=== PATIENT | male | born 1940 | race Caucasian/White ===

== ENCOUNTER 2025-01-02 17:56 | Observation (INO) | payer MEDICARE, OTHER, SELFPAY ==
[2025-01-02] VITALS (7 sets, daily range): BP systolic 126–170; BP diastolic 64–80; BMI 25.9
[2025-01-02 15:45] LABS: Glucose - Point of Care 112 mg/dl (70-99)
--- NOTE | 2025-01-02 15:45 | ED.CVA ---
History of Present Illness
General
Chief Complaint: CVA/TIA Symptoms
Source: patient and ambulance crew
Exam Limitations: none
Time Seen by Provider: 01/02/25 15:43
Nursing documentation reviewed up to this point in time: agreed with
Onset of Stroke Symptoms
Onset of symptoms known: Yes
Date of onset of symptoms: 01/02/25
Time of onset of symptoms: 10:00
Time pt last seen normal is known: Yes
Date last time pt seen normal: 01/02/25
Time last time pt seen normal: 10:00
History of Present Illness
History of Present Illness:
84-year-old male presents emergency department due to left facial droop, left leg weakness and difficulty speaking. His last seen normal at 10 AM.
Past History
Past History
ED Past Medical History: HTN
ED Past Surgical History: Orthopedic (Left ankle) and Other (Neck surgery as an )
Social History
Tobacco: Non-smoker
Alcohol: None
Living: with roommate
Review of Systems
Review of Systems
Allergies reviewed?: Yes
All Other Systems: Not applicable
Constitutional: Reports no symptoms
EENT: Reports no symptoms
Respiratory: Reports no symptoms
Cardiac: Reports no symptoms
ABD/GI: Reports no symptoms
: Reports no symptoms
Musculoskeletal: Reports no symptoms
Skin: Reports no symptoms
Neurological: Reports weakness
Endocrine: Reports no symptoms
Hematologic/Lymphatic: Reports no symptoms
Psychiatric: Reports no symptoms
Phy Exam
Physical Exam
Physical Exam:
Physical Exam
General: no apparent distress, not acutely ill
Neck: supple. no meningeal signs. normal posterior pharynx
Heart: s1/s2 regular rate and rhythm, no murmur. equal radial
pulses.
HEENT: Pupils equal round reactive to light, EOMI
Lungs: no acute respiratory distress. clear bilaterally
Abdomen: normal bowel sounds. not tender. no CVAT
Neuro: alert and oriented. Left facial droop, left leg weakness, drift, dysarthria
Skin: no rash
Psychiatric: well kept. interactive and cooperative
Extremities: no edema. no calf tenderness. negative homans. good distal pulses
Alteplase Contraindication
Reasons for NON-Treatment with Thrombolytics: Time
Scores
NIH Stroke Score
Level of Consciousness: 0 - Alert
LOC Questions: 0-Answers both correctly
LOC Commands: 0-Performs both correctly
Best Horizontal Gaze: 0-Normal
Visual Awad: 0=Normal, no visual loss
Facial Palsy: 1=Minor paralysis
Motor - Right Arm: 0=No drift 10 seconds
Motor - Left Arm: 0=No drift 10 seconds
Motor - Right Le-No drift 5 seconds
Motor - Left Le-Drift < 5 seconds
Limb Ataxia: 0-Absent
Sensation: 0-Normal
Best Language: 0-No aphasia
Dysarthria: 1-Mild slurring
Extinction and Inattention: 0-No abnormality
Total Score:: 3
Thrombolytic Contraindication
Inclusion and Exclusion criteria reviewed: Yes
Reasons for NON-Tx with Thrombolytics ABSOLUTE Exclusions: Greater than 4.5 hrs from onset of sxs
Course
Orders/Labs/Results
Orders:
Orders
01/02/25 Dinner
Cholesterol Lowering
At Your Request: Full Participation
Reason for opting out of Air Brake Adjuster order writing: Provider Decision
01/02/25 15:43
CT HEAD STROKE ALERT W/o Cont Urgent
Comment:
Reason For Exam: left facial droop, left leg drift, dysarthria
01/02/25 15:44
Cardiac Monitoring- Treatment ONCE
IV Insert/Care/Rem.- Treatment PRN
Pulse Ox/cont/shift [RESP] Stat
Quantity: 1
01/02/25 15:45
Electrocardiogram (*1) Stat
Reason for Study: Other
Other Reason for Exam: neuro symptoms
EKG- Treatment ONCE
01/02/25 15:46
Cardiovascular Evaluation Urgent
Comment: ADD ON
Complete Blood Count/With Diff Urgent
Comprehensive Metabolic Panel Urgent
Glycohemoglobin (HgbA1c) Urgent
PTT Urgent
Prothrombin Time Urgent
01/02/25 16:10
Vital Signs- Treatment ONCE
Frequency: q30m
01/02/25 16:12
CT Head & Neck Angio W/wo IV Urgent
Comment:
Reason For Exam: stenosis
01/02/25 16:52
Urinalysis Reflex To Culture Urgent
Date Specimen was Collected: 01/02/25
Time Specimen was Collected: 16:45
Urine Microscopic Reflex Cult Urgent
01/02/25 17:45
Admit/Transfer Patient As Directed
Co-Sign Provider:
Level of Care: Observation services
Assign to:: Telemetry
Physician / Group: Jesus/hospitalist
Diagnosis: slurred speech, weakness
Reason for Telemetry: CVA/TIA
Date to Stop Telemetry: 01/05/25
Time to Stop Telemetry: 11:00
PRN Pain Medication Management As Directed
May give lesser potent ordered pain med per pt: Yes
preference::
Protocol:: Medication orders for pain may be administered in a
manner that supports deferring to patient preference
when the pt is:
- Requesting an ordered lesser potent pain medication.
Least to most potent pain medications are defined
as: acetaminophen < NSAID < tramadol < opioids
(morphine, oxycodone, hydromorphone).
- Requesting a lesser dose of the same medication IF
ORDERED.
- Requesting a less intrusive route of administration
if both routes are prescribed by the provider (PO <
IV).
01/02/25 17:46
Code Status As Directed
Resuscitation Status: Full Code
01/02/25 17:50
Add On- LAB Routine
Tests Added?: HgA1C, lipid panel
01/02/25 18:00
Aspirin Low Dose EC [Aspir Low (Enteric Coated)] 81 mg PO DAILY
Clopidogrel Bisulfate [Plavix] 75 mg PO DAILY
01/02/25 20:02
Acetaminophen [Tylenol/Feverall] 650 mg RECTAL Q4HPRN PRN
Acetaminophen [Tylenol] 650 mg PO Q4HPRN PRN
01/02/25 20:02
Echo 2D MMode Color/Doppler Routine
Reason for Study: stroke/TIA
Case Management Consult ONCE
Case Management Consult: Discharge Planning
Comment: stroke/tia
DIETARY IP CONSULT Routine
Reason for Consult: stroke/TIA
NEUROLOGY CONSULT Urgent
Consulting Provider: Charmaine Snyder
Was physician already notified: Yes
Telecom Manager Urgent
MR Brain Without Contrast Routine
Comment:
Reason For Exam: stroke/TIA
Recent pill cam endoscopy?: No
Activity As Directed
Activity Level: As Tolerated
NIH Stroke Scale As Directed
Directions: Per protocol
Comment: every shift and with any change in condition or mental status
Neurological Checks As Directed
Frequency: q4h
Additional Instructions:: q4h x 24h upon admission to the floor, then qshift & with any change in condition
and mental status
Patient Education As Directed
Type: Stroke education packet
Comment: provide to patient and family
Pneumatic Compression Sleeves As Directed
Type: Knee high
Swallow Screening CVA/TIA ONLY As Directed
Comment: NPO until swallowing screening completed
If patient FAILS swallow screening:: NPO, Speech Therapy consult, Aspiration Precautions
If patient PASSES swallow screening, diet:: Cholesterol Lowering
Above diet order entered?: Yes- passed screening
Vital Signs As Directed
Frequency: Per unit guidelines
Ot Eval And Treat Routine
Pt Eval And Treat Routine
Activity Level: As Tolerated
Speech Therapy Eval & Treat Routine
DX Deep Vein Thrombosis Video Routine
01/03/25 06:00
Cardiovascular Evaluation IN AM
01/05/25 11:00
DC Protocol for Telemetry ONCE
Abnormal Lab Results
01/02/25 01/02/25 01/02/25
15:43 15:46 16:52
RBC 3.91 L 10^6/uL
(4.70-6.10)
Hct 38.6 L %
(39.0-52.0)
MCV 98.7 H fL
(80.0-94.0)
MCH 34.8 H pg
(27.0-31.0)
Plt Count 128 L 10^3/uL
(130-400)
MPV 11.1 H fL
(7.4-10.4)
Absolute Lymphs (auto) 0.3 L 10^3/uL
(1.2-3.4)
Neutrophils % 78.9 H %
(42.2-75.2)
Lymphocytes % 6.1 L %
(20.5-51.1)
Monocytes % 10.3 H %
(1.7-9.3)
PT 14.9 H Sec
(11.4-14.6)
Glucose 111 H mg/dl
(70-99)
Total Bilirubin 1.4 H mg/dl
(0.2-1.3)
Urine Ketones 1+ A
(Negative)
Ur Occult Blood Reflex 2+ A
(Negative)
Urine RBC 3-6 A /HPF
(0-2)
Urine Bacteria (Reflex) Few A
(Negative)
Urine Albumin (Reflex) 1+ A
(Neg - Trace)
POC Glucose 112 H mg/dl
(70-99)
01/02/25 15:46
01/02/25 15:46
Vital Signs
Initial and Last Documented VS:
Initial Vital Signs
Pulse Resp BP Pulse Ox
93 18 170/70 94
01/02/25 15:39 01/02/25 15:39 01/02/25 15:39 01/02/25 15:39
Last Documented Vital Signs
Temp Pulse Resp BP Pulse Ox
98.5 F 85 20 156/67 97
01/02/25 20:21 01/02/25 20:21 01/02/25 20:21 01/02/25 20:21 01/02/25 20:21
MDM/Problems Addressed
Differential Diagnosis Includes:
Intracranial hemorrhage, CVA
MDM/Problems Addressed:
84-year-old male with acute CVA. Unclear onset. Stroke alert called. TNK not indicated. This is due to timing.
Chronic conditions affecting care: HTN
*Radiology
Radiology exam reviewed: radiology read reviewed (CT head no acute findings, CT angiography no acute findings)
*Pulse Oximetry
Patient hypoxic: no
*EKG
Interpreted by ED Provider?: Yes
EKG Intrepretation Date: 01/02/25
EKG Intrepretation Time: 16:21
Interpretation: abnormal
Comparison EKG: changes noted
Heart Rate: 93
Rate: normal
Rhythm: sinus and PVC's
Foley: normal axis
Interval: normal interval
QRS Pattern: normal QRS
Ischemia: no ischemia
*Box Person Interpretation
Rate: normal
Interpretation: normal
Heart Rate: 92
Rhythm: sinus
*Critical Care Note
Total Time (30-74mins, 75-104mins- exclusive of procedures): Not Applicable
Data Reviewed
Prescriptions/Medications Considered But Not Given:
TNK not indicated
Patient Management
Social determinants of health affecting care: Living situation and Strong social support
Discussion with other providers: Hospitalist and Head Filter Press Tender (neuro recommends DAPT)
Escalation/DeEscalation of care consider admission/obs:
admit not indicated
ED Attending Note
-
Portions of this chart may have been created with voice recognition software.� Occasional wrong word or��sound alike� substitutions may have occurred due to the inherent limitations of voice recognition software.
Discharge Plan
Departure
Patient Disposition: Admit
Date of Disposition: 01/02/25
Time of Disposition: 17:24
Admit to: Telemetry
Presentation/result/management discussed w/ accepting MD/DO: Hospitalist
Patient with high blood pressure during this ER visit?: Yes
Condition: Good
Discharge Problem:
Acute cerebrovascular accident (CVA)
Interventions
Interventions:
*Risk Screen - Suicide Last Done: 01/02/25 22:24
*General Assessment Last Done: 01/02/25 16:00
*Neglect/Abuse Screening Last Done: 01/02/25 19:30
*ED- Fall Risk Assessment Last Done: 01/02/25 16:00
*Nursing Disposition Last Done: 01/02/25 19:30
ED- Pulmonary Assessment Last Done: 01/02/25 16:00
ED- Neurological Assessment Last Done: 01/02/25 16:00
ED- Cardiac Assessment Last Done: 01/02/25 16:00
ED Swallowing Screen Last Done: 01/02/25 16:00
Discharge Date and Time
Discharge Date/Time: 01/02/25 19:30
--- NOTE | 2025-01-02 15:47 | CON.NEURO ---
Consultation
Order
Date of Consultation: 01/02/25
Requesting Provider: Cristino Arshad DO
Reason for Consult: Stroke alert
Prehospital notification: 15:29
Neurology Consultation Note.
HPI: This is an 84-year-old man who presented to the [facility] on 01/02/[facility] with speech and motor deficits. According to patient's girlfriend
Around 1:30 PM, the patient complained of feeling cold, which was unusual for him, and had a blanket over his legs while watching television. His noticed his speech became slurred around 2:30 pm, and he reported feeling dizzy and 'not right.'
When he attempted to stand up, he had was noted to be imbalances and had trouble climbing stairs. Patient girlfriend is not '100% sure ' if the patient was normal at 1:30 pm today.
The patient's reportedly typically practices his double boyle 5 days a week, but did not do so today, which was out of character. She mentions he hadn't eaten anything today in preparation for an [employer] meal. At baseline patient is reportedly
independent in ADLs.
ER VS: 170/70, 93, 18,
EKG:NSR, QTc Int : 420 ms
PDMP:none
Labs:gluc 112, normal WBCs, platelets�128 bilirubin�[address] head wo contrast-4 mm central damian chronic lacunar infarct.
PMH: HTN, PSA elevation, seasonal allergies
PSH: Open reduction internal fixation of a left ankle trimalleolar fracture, ?Neck surgery
SH: independent in AIDLs, smoker smoker, no E
FH:mother-depression, father- from pancreatitis
All:NKDA
ROS: Negative for speech, motor deficit, positive for encephalopathy
NIH Stroke Scale
1A Level of Consciousness: 0/3
1B LOC Questions: 0/2
1C LOC Commands: 0/2
2 Best Gaze: 0/2
3 Visual: 0/3
4 Facial Palsy: 1/3
5A Motor Arm LEFT: 0/4
5B Motor Arm RIGHT: 0/4
6A Motor Leg LEFT: 1/4
6B Motor Leg RIGHT: 0/4
7 Limb Ataxia: 0/2
8 Sensory: 0/2
9 Best Language: 0/3
10 Dysarthria: 1/2
11 Extinction/Inattention: 0/2
Total NIHSS: 3
Assessment and Plan:
I. Right subcortical syndrome. Not a candidate for IV TNK due to low NIH stroke scale and clear time of symptoms onset.
II. Encephalopathy, likely vascular
III. Thrombocytopenia
IV. HTN
-Continue Telemetry monitoring
-Please follow-up CTA head and neck
-Start DAPT for 3 weeks with close platelet monitoring
-Brain MRI without misha
-Please check and document temperature
-Please check lipid panel, hemoglobin A1c
-DVT prophylaxis.
-Case was discussed with patient's girlfriend. All questions were answered
I personally reviewed all radiology and labs along with past medical records pertinent to current medical problems. Total time spent in patient care is 60 minutes.
Thank you for allowing us to participate in the care of this patient. We will continue to follow. Please do not hesitate to contact us with any questions or concerns.
Subjective/Objective
Subjective Data
Date of Service: January 02, 2025
Objective Data
Vital Signs
Pulse Resp BP Pulse Ox
93 18 170/70 94
01/02/25 15:39 01/02/25 15:39 01/02/25 15:39 01/02/25 15:39
Patient Allergies
No Known Allergies Allergy (Verified 04/29/23 14:35)
Medications
-
Home Medications
�Medication �Instructions �Recorded
hydrocodone 5 mg-acetaminophen 325 1 tab PO Q4HPRN PRN pain #20 tabs 07/08/15
mg tablet
Vital Signs and Labs
-
Vital Signs and Labs:
Vital Signs
Pulse Resp BP Pulse Ox
93 18 170/70 94
01/02/25 15:39 01/02/25 15:39 01/02/25 15:39 01/02/25 15:39
Lab Results
01/02/25 15:46
01/02/25 15:46
PT 14.9 Sec (11.4-14.6) H 01/02/25 15:46
INR 1.14 01/02/25 15:46
APTT 31.1 Sec (23.4-35.0) 01/02/25 15:46
Sodium 139 mmol/L (135-145) 01/02/25 15:46
Potassium 4.2 mmol/L (3.5-5.1) 01/02/25 15:46
BUN 19 mg/dl (9-20) 01/02/25 15:46
Glucose 111 mg/dl (70-99) H 01/02/25 15:46
Calcium 9.8 mg/dl (8.4-10.2) 01/02/25 15:46
Home Medications
-
Home Medications
Prosvent 1 tab PO DAILY 01/02/25
amlodipine 5 mg-benazepril 10 mg capsule 1 cap PO DAILY 01/02/25
ascorbic acid (vitamin C) 1,000 mg tablet 2 g PO DAILY 01/02/25
diphenhydramine HCl 25 mg capsule (Benadryl) 75 mg PO DAILYPRN PRN allergy 01/02/25
multivitamin 1 tab PO DAILY 01/02/25
zinc gluconate 30 mg tablet 15 mg PO DAILY 01/02/25
[2025-01-02 15:59] LABS: % Basophils 0.5 % (0-2); % Immature Granulocytes 0.2 % (0-0.5); % Lymphocytes 6.1 % (20.5-51.1); % Monocytes 10.3 % (1.7-9.3); % Neutrophils 78.9 % (42.2-75.2); Absolute Eosinophils 0.2 10^3/uL (0-0.7); Absolute Lymphocytes 0.3 10^3/uL (1.2-3.4); Absolute Monocytes 0.6 10^3/uL (0.1-0.6); Absolute Neutrophils 4.4 10^3/uL (1.4-6.5); Hematocrit 38.6 % (39.0-52.0); Hemoglobin 13.6 g/dL (13.0-18.0); Mean Corp Hgb Conc. 35.2 g/dL (33.0-37.0); Mean Corpuscular Hgb 34.8 pg (27.0-31.0); Mean Corpuscular Volume 98.7 fL (80.0-94.0); Mean Platelet Volume 11.1 fL (7.4-10.4); Nucleated Red Blood Cells % 0 % (-); Platelet Count 128 10^3/uL (130-400); Red Blood Cell Count 3.91 10^6/uL (4.70-6.10); Red Cell Dist. Width 12.7 % (11.5-14.5); White Blood Cell Count 5.5 10^3/uL (4.8-10.8)
[2025-01-02 16:07] LABS: INR 1.14; PT 14.9 Sec (11.4-14.6)
[2025-01-02 16:08] LABS: ALT (SGPT) 21 U/L (0-50); APTT 31.1 Sec (23.4-35.0); AST (SGOT) 21 U/L (17-59); Albumin 4.1 g/dl (3.5-5.0); Alkaline Phosphatase 115 U/L (38-126); Blood Urea Nitrogen 19 mg/dl (9-20); Calcium 9.8 mg/dl (8.4-10.2); Carbon Dioxide 24 mmol/L (22-30); Chloride 107 mmol/L (98-107); Estimated Creatinine Clearance 44 ml/min; Glucose 111 mg/dl (70-99); Potassium 4.2 mmol/L (3.5-5.1); Sodium 139 mmol/L (135-145); Total Bilirubin 1.4 mg/dl (0.2-1.3); Total Protein 7.3 g/dl (6.3-8.2); eGFR 54.85
[2025-01-02 17:07] LABS: Urine Albumin 1+ (Neg - Trace); Urine Bilirubin Negative (Negative); Urine Character Clear (Clear); Urine Color Yellow; Urine Glucose Negative (Negative); Urine Ketone 1+ (Negative); Urine Leukocyte Negative (Negative); Urine Nitrite Negative (Negative); Urine Occult Blood 2+ (Negative); Urine Urobilinogen Negative (Neg - 1+); Urine pH 6.5 (5.0-9.0)
[2025-01-02 17:19] LABS: Urine Bacteria Few (Negative); Urine Squamous Cell 0-2 /LPF (Few); Urine White Cell 0-2 /HPF (0-5)
--- NOTE | 2025-01-02 17:28 | HPS.HSE ---
Family Physician
-
Family Physician: Ravi Cardoza
Chief Complaint
-
slurred speech and imbalance
History of Present Illness
HPI: 84-year-old man with PMH hypertension p/w slurred speech and unsteady gait.
On DOA, he c/o feeling cold at around 1:30 PM, which was unusual for him; at around 2:30 his girlfriend noticed slurred speech and he was also unsteady on his legs.
He denies any other symptoms.
Medical History
Past Medical History
Past Medical History: Reports HTN and Other (BPH)
Past Surgical History: Reports None
Social History
Tobacco: Non-smoker
Alcohol: None
Living: With Family (with girlfriend)
Family History
Family History: Not pertinent
Allergies / Home Medications
Allergies reflects when Allergies were last updated in [employer].
Home Medications with original date entered in [employer]
Allergy/Medication List:
Allergies
Allergy/AdvReac Type Severity Reaction Status Date / Time
No Known Allergies Allergy Verified 04/29/23 14:35
Home Medications
Prosvent 1 tab PO DAILY 01/02/25
amlodipine 5 mg-benazepril 10 mg capsule 1 cap PO DAILY 01/02/25
ascorbic acid (vitamin C) 1,000 mg tablet 2 g PO DAILY 01/02/25
diphenhydramine HCl 25 mg capsule (Benadryl) 75 mg PO DAILYPRN PRN allergy 01/02/25
multivitamin 1 tab PO DAILY 01/02/25
zinc gluconate 30 mg tablet 15 mg PO DAILY 01/02/25
Review of Systems
-
Neurological: Reports See HPI
Physical Exam
Vital Signs
Vital Signs
Temp Pulse Resp BP Pulse Ox
37.6 C 76 26 144/65 96
01/02/25 16:10 01/02/25 17:00 01/02/25 17:00 01/02/25 17:00 01/02/25 17:00
Physical Exam
General: Well Developed, Well Nourished, No Apparent Distress, Comfortable and Conversant
HEENT: NormoCephalic, Moist mucous membranes and Atraumatic
Respiratory: Clear and Non Labored Respirations; No Accessory Resp Muscle Use
Cardiac: S1/S2 and Regular Rhythm; No Murmur or Rub
GI: Soft, Non Tender, Non Distended and Normal Bowel Sounds; No Organomegaly
Rectal: Deferred by Provider
Musculoskeletal: No Clubbing, No Cyanosis and No Edema
Skin: No Rash
Neuro: Awake, Alert, Oriented and No Motor Deficits; No Slurred Speech or Facial Droop
Psych: Calm and Intact Judgment/Insight
Laboratory Results
-
01/02/25 15:46
01/02/25 15:46
Laboratory Results
PT 14.9 Sec (11.4-14.6) H 01/02/25 15:46
INR 1.14 01/02/25 15:46
APTT 31.1 Sec (23.4-35.0) 01/02/25 15:46
Total Bilirubin 1.4 mg/dl (0.2-1.3) H 01/02/25 15:46
AST 21 U/L (17-59) 01/02/25 15:46
ALT 21 U/L (0-50) 01/02/25 15:46
Alkaline Phosphatase 115 U/L (38-126) 01/02/25 15:46
Data Reviewed
-
CT Scan: Report Reviewed by me
Lab Data: Labs Reviewed by me
Impression/Plan
-
HPI: 84-year-old man with PMH hypertension, BPH; p/w slurred speech and unsteady gait.
On DOA, he c/o feeling cold at around 1:30 PM, which was unusual for him; at around 2:30 his girlfriend noticed slurred speech and he was also unsteady on his legs.
He denies any other symptoms.
In the ED, his neurologic deficients have much resolved.
His CT head showed No acute intracranial abnormality noted. No acute hemorrhage. No evidence to suggest acute large vascular territory transcortical infarct at this time.
A/P:
# suspect acute stroke with slurred speech and imbalance.
Pt is not a candidate for IV TNK due to low NIH stroke scale per neuro.
Continue Telemetry monitoring
follow up CTA head and neck
Check MRI brain
Check 2D echo
Start DAPT for 3 weeks, then ASA after that
Check lipid panel, hemoglobin A1c
DVT prophylaxis with SCD for now.
# HTN
Allow permissive hypertension
# BPH
DVT ppx: SCD
FC
[2025-01-02 18:24] LABS: HDL Cholesterol 45 mg/dl; LDL Cholesterol, Calculated 127 mg/dl; Total Cholesterol 190 mg/dl (50-199); Triglyceride 92 mg/dl (10-149); Very Low Density Lipoprotein 18 mg/dl (0-30)
[2025-01-02] MEDS: PLAVIX 75 MG PO (19:04)
[2025-01-02] MEDS: ASPIR LOW (ENTERIC COATED) 81 MG PO (19:04)
--- NOTE | 2025-01-02 20:21 | PTCARENOTE ---
Pt arrived from the ED via stretcher and was a stand and pivot to the bed. Pt was NASH sating 97% on 1L NC, VSS, and AAOx3. Pt call boyd within reach.
[2025-01-03] VITALS (8 sets, daily range): BP systolic 121–166; BP diastolic 53–75; PULSE 59–80
[2025-01-03 07:07] LABS: HDL Cholesterol 39 mg/dl; LDL Cholesterol, Calculated 108 mg/dl; Total Cholesterol 158 mg/dl (50-199); Triglyceride 58 mg/dl (10-149); Very Low Density Lipoprotein 11 mg/dl (0-30)
[2025-01-03] MEDS: PLAVIX 75 MG PO (09:30)
[2025-01-03] MEDS: ASPIR LOW (ENTERIC COATED) 81 MG PO (09:30)
--- NOTE | 2025-01-03 10:05 | W.PN.HOSP.TC ---
Today's Communication/Plan
-
see AP
Assessment / Plan
Assessment / Plan
HPI: 84-year-old man with PMH hypertension, BPH; p/w slurred speech and unsteady gait.
On DOA, he c/o feeling cold at around 1:30 PM, which was unusual for him; at around 2:30 his girlfriend noticed slurred speech and he was also unsteady on his legs.
He denies any other symptoms.
In the ED, his neurologic deficients have much resolved.
His CT head showed No acute intracranial abnormality noted. No acute hemorrhage. No evidence to suggest acute large vascular territory transcortical infarct at this time.
A/P:
# suspect acute stroke with slurred speech and imbalance.
Pt is not a candidate for IV TNK due to low NIH stroke scale per neuro.
Continue Telemetry monitoring
CTA head and neck: RIGHT Carotid bulb/ICA Mild to moderate calcified plaque. ICA estimated luminal diameter reduction of 60-70%. No occlusion or dissection.
LEFT Carotid bulb/ICA: Moderate calcified plaque involving the carotid bulb and proximal ICA. However, no hemodynamically significant stenosis, with estimated luminal diameter reduction of less than 50%. No occlusion. No dissection.
No [place] region aneurysm or stenosis. No cerebral artery significant plaque, stenosis, thrombus, or occlusion.
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
Cont ASA without further Plavix
LDL 108, started Lipitor adjusted to 20 mg
hemoglobin A1c 5.0%
# Bradycardia
EKG noted possible prolongation of WI interval
Check 2D echo
Card CS
# HTN
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
Restart low dose Norvasc 2.5 mg daily with holding parameter
# BPH
DVT ppx: SCD
FC
DW SO on the phone. Answered all questions.
total time spent 51 min
Anticipated Discharge: Within 24 hours
Subjective/Interval History
-
Date of Service: January 03, 2025
Objective Data
-
Vital Signs:
Vital Signs
Temp Pulse Resp BP Pulse Ox
36.8 C 76 18 121/56 95
01/03/25 09:46 01/03/25 07:21 01/03/25 07:21 01/03/25 07:21 01/03/25 07:21
I&O
01/02/25 01/03/25 01/04/25
06:59 06:59 06:59
Intake Total 480 / 480
Output Total 1050 / 1050
Balance -570 / -570
Review of Systems
-
All other systems: Reviewed and negative
Physical Exam
-
General: Well Developed, Well Nourished, No Apparent Distress, Comfortable and Conversant; Negative Respiratory Distress
HEENT: Normocephalic, Atraumatic, Nose Appears Normal and Ears Appear Normal; Negative Oxygen
Respiratory: Clear to Auscultation and Non Labored Respirations; Negative Accessory Resp Muscle Use
Cardiac: Regular Rhythm and S1/S2
GI: Soft, Nontender, Nondistended and Normal Bowel Sounds
Skin: Warm and Dry
Neuro: Awake, Alert, Oriented and AO x 3
Psych: Calm and Intact Judgement/Insight
Data Reviewed
-
CT Scan: Report Reviewed by me
MRI: Report Reviewed by me
Labs: Labs Reviewed by me
--- NOTE | 2025-01-03 11:00 | PTCARENOTE ---
While pt off the floor for MRI heart rate noted to dip into 40's to high 30's. Cardiac rhythm appears quite irregular with possible second degree block/PVC's since admission. MRI staff stated pt was sleeping and when awakened stated he was
asymptomatic. Dr. Lee notified. EKG to be obtained upon return to floor.
--- NOTE | 2025-01-03 11:11 | W.PN.NEURO.1 ---
Today's Communication / Plan
-
.
Subjective/Objective
Subjective Data
Date of Service: January 03, 2025
Neurology follow-up note
Mr. Sherman reports no complaints.
He recalls having malaise and chills as well as slurred speech since morning of t. no reports of headaches, change in vision, strength.
The patient has been afebrile. His blood pressure has normalized.
LDL�108, normal globin A1c�5.
Brain MRI�no evidence of acute infarcts, 6.5 mm chronic ischemic infarct in the damian, small chronic transcortical ischemic infarct in the superior right frontal lobe; mild to moderate bilateral periventricular white matter leukoaraiosis and atrophy.
CTA head-moderate right ICA stenosis.
PMH: HTN, PSA elevation, seasonal allergies
PSH: Open reduction internal fixation of a left ankle trimalleolar fracture, ?Neck surgery
SH: independent in AIDLs, former smoker, no excessive alcohol use
FH:mother-depression, father- from pancreatitis, sister�cancer
All:NKDA
ROS: Positive for xerostomia, dysarthria, chronic hearing impairment. Negative for headache, chest pain,
General: Well developed. In no acute distress.
Cardio: Regular rate and rhythm without murmur. Extremities are without cyanosis or edema.
Neuro:
Mental Status: Alert, oriented to person, place, and date. Increased processing time normal attention and recall. Good fund of knowledge. Follows complex requests across the midline. Comprehension, naming, and repetition intact.
Cranial Nerves: Unable to visualize optic discs due to insufficient dilatation. Pupils are equally round and reactive to light. EOMs full. Visual santos full to confrontation. No ptosis. No nystagmus. V1-V3 intact to light touch and pinprick
bilaterally, symmetric. Face symmetric. Impaired hearing AU. The palate elevated well. SCMs and traps 5/5. Tongue midline. Mild dysarthria.
Motor: Normal bulk and tone. No pronator or arm drift. Strength 5/5 throughout. No clonus.
Reflexes: 1+ throughout the upper extremities and knees. Plantar responses flexor bilaterally.
Sensory: Absent vibration at the toes and impaired at the ankles
Coordination: No dysmetria or tremor.
Gait: deferred
Assessment and Plan:
I. 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
II. Moderate right ICA stenosis
III. Thrombocytopenia
IV. Distal symmetric large fiber polyneuropathy
-Continue Telemetry monitoring
-Aspiration precaution
-Dysphagia evaluation
-Continue aspirin 81 mg once a day
-Lipitor 20 mg nightly
-Please check vitamin B12, SPEP, immunofixation, vitamin B1
-DVT prophylaxis.
-Case was discussed with patient's girlfriend. All questions were answered
I personally reviewed all radiology and labs along with past medical records pertinent to current medical problems. Total time spent in patient care is 35 minutes.
Thank you for allowing us to participate in the care of this patient. We will continue to follow. Please do not hesitate to contact us with any questions or concerns.
Objective Data
Vital Signs
Temp Pulse Resp BP Pulse Ox
36.8 C 76 18 121/56 95
01/03/25 09:46 01/03/25 07:21 01/03/25 07:21 01/03/25 07:21 01/03/25 07:21
Lab Results
01/02/25 15:46
01/02/25 15:46
PT 14.9 Sec (11.4-14.6) H 01/02/25 15:46
INR 1.14 01/02/25 15:46
APTT 31.1 Sec (23.4-35.0) 01/02/25 15:46
Sodium 139 mmol/L (135-145) 01/02/25 15:46
Potassium 4.2 mmol/L (3.5-5.1) 01/02/25 15:46
BUN 19 mg/dl (9-20) 01/02/25 15:46
Glucose 111 mg/dl (70-99) H 01/02/25 15:46
Calcium 9.8 mg/dl (8.4-10.2) 01/02/25 15:46
LDL Cholesterol, Calc 108 mg/dl 01/03/25 06:19
Patient Allergies
No Known Allergies Allergy (Verified 04/29/23 14:35)
Vital Signs and Labs
-
Vital Signs and Labs:
Vital Signs
Temp Pulse Resp BP Pulse Ox
36.8 C 76 18 121/56 95
01/03/25 09:46 01/03/25 07:21 01/03/25 07:21 01/03/25 07:21 01/03/25 07:21
Lab Results
01/02/25 15:46
01/02/25 15:46
PT 14.9 Sec (11.4-14.6) H 01/02/25 15:46
INR 1.14 01/02/25 15:46
APTT 31.1 Sec (23.4-35.0) 01/02/25 15:46
Sodium 139 mmol/L (135-145) 01/02/25 15:46
Potassium 4.2 mmol/L (3.5-5.1) 01/02/25 15:46
BUN 19 mg/dl (9-20) 01/02/25 15:46
Glucose 111 mg/dl (70-99) H 01/02/25 15:46
Calcium 9.8 mg/dl (8.4-10.2) 01/02/25 15:46
LDL Cholesterol, Calc 108 mg/dl 01/03/25 06:19
Medications
-
Medications:
Generic Name Dose Route Start Last Admin
Trade Name Freq PRN Reason Stop Dose Admin
Acetaminophen 650 mg 01/02/25 20:02
Acetaminophen 650 Mg Rectal Suppository RECTAL 01/30/25 20:01
Q4HPRN PRN
PARKS, mild pain, or temp >100.4F
Acetaminophen 650 mg 01/02/25 20:02
Acetaminophen 325 Mg Tablet PO 01/30/25 20:01
Q4HPRN PRN
PARKS, mild pain, or temp >100.4F
Aspirin 81 mg 01/02/25 18:00 01/03/25 09:30
Aspirin 81 Mg (Enteric Coated) Tablet PO 01/30/25 17:59 81 mg
DAILY SHAILESH Administration
Atorvastatin Calcium 40 mg 01/03/25 18:00
Atorvastatin (Lipitor) 40 Mg Tablet PO 01/31/25 17:59
QPM SHAILESH
Clopidogrel Bisulfate 75 mg 01/02/25 18:00 01/03/25 09:30
Clopidogrel 75 Mg Tablet PO 01/22/25 08:01 75 mg
DAILY SHAILESH Administration
Sodium Chloride 0 flush 01/02/25 21:00
Sodium Chloride 0.9% (Flush) Syringe IV 01/30/25 20:59
PER PROTOCOL SHAILESH
Home Medications
-
Home Medications
Prosvent 1 tab PO DAILY Supplement 01/02/25
amlodipine 5 mg-benazepril 10 mg capsule 1 cap PO DAILY Blood Pressure 01/02/25
ascorbic acid (vitamin C) 1,000 mg tablet 2 g PO DAILY Supplement 01/02/25
diphenhydramine HCl 25 mg capsule (Benadryl) 75 mg PO DAILYPRN PRN allergy 01/02/25
multivitamin 1 tab PO DAILY Supplement 01/02/25
zinc gluconate 30 mg tablet 15 mg PO DAILY Supplement 01/02/25
--- NOTE | 2025-01-03 13:45 | CM ---
Attempted to meet with patient to obtain information for assessment, however, patient at testing. Placed a call to patient's brother who stated that patient lives in a house with two stories and 2 steps to enter, with his S.O. He has been
independent with his ADLs, personal care, dressing and bathing. 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 Patient can drive and can get himself to his appointments and do all of his own shopping. He has a CPAP. He has never had VN
or been to a SNF.
Patient has a prescription plan and uses [facility] in [place] for all of his medications.
His PCP is Ravi Cardoza.
Plan: Case management will continue to follow and assist with discharge planning. Most likely home no needs. OBS status reviewed and form signed.
--- NOTE | 2025-01-03 14:07 | PTOTSP ---
Speech Therapy Evaluation:
Swallow:
Pt presents with grossly functional oropharyngeal swallow at bedside with no s/sx of aspiration, however risk of aspiration elevated given recrudescence of chronic R MCA and midpontine infarcts. No chest imaging completed thus far, however WBC WNL,
pt on room air, pt passed 3oz swallow screen, and pt has no hx of dysphagia.
Speech:
Pt with mild dysarthria as characterized by reduced articulatory precision. Despite this, pt remained 100% intelligible in conversation. He reported slurred speech continues to improve.
Recommend:
1. Continue IDDSI Level 7 (regular) solids and thin liquids
2. Medications as tolerated
3. General aspiration and reflux precautions
4. CERTIFIED OPHTHALMIC TECHNICIAN to follow to monitor tolerance of diet, likely brief, and to provide education and tx as appropriate for dysarthria
--- NOTE | 2025-01-03 14:19 | CON.CAR ---
Addendum entered and electronically signed by Zelalem Walters DO 01/03/25 17:04:
Addendum:
I discussed with patient's girlfriend, Lela, by phone, regarding his current condition from cardiovascular standpoint. We discussed that we are still undergoing evaluation for his symptoms that he experienced yesterday prompting evaluation in the
hospital. We discussed the concern that his symptoms may be related to a heart rate/rhythm issue which may require pacemaker implantation. I discussed that at this current time, patient does not require pacemaker given his lack of symptoms and
current rhythm documented by telemetry. He is still undergoing further testing and evaluation and may remain in the hospital for an additional day or 2 pending those results. They mentioned that patient is to remain nothing by mouth after midnight
in the event that a pacemaker were necessary tomorrow. We discussed that patient's blood pressure may play a role in how he feels and there is concern by her that his blood pressure may have been low and then worsened by his blood pressure
medications. We discussed that his current blood pressure on admission was 170 systolics and currently remains in the 150s systolics. Patient may require ongoing treatment for hypertension however I am deferring this currently to neurology/primary
service. Patient's girlfriend verbalized understanding and agreed with our current plan.
Addendum entered and electronically signed by Zelalem Walters DO 01/03/25 16:40:
I saw and examined the patient.
The Laborer Driver's note was reviewed and I agree with the note.
Comment:
Patient reporting no significant lightheaded or dizziness today. Patient seen resting in bed for majority of the day but when up and around, denies any lightheadedness, dizziness, near-syncope, or syncope. Denies any chest discomfort, shortness of
breath, palpitations, lower extremity swelling, or weakness. Of note, in discussion with patient regarding his initial presentation, he reporting significant chills and shakes prior to coming to the hospital along with the associated
lightheadedness fatigue and dizziness. Patient does not follow with a division commander and has not been told that he has a slow heartbeat or may need a pacemaker. Patient is a former smoker, no alcohol, no illicits. Of note, patient's had Lyme
disease a few times in the past. While he reports that he has not been out and in the wilderness, he has dogs were often in the brush who bring home ticks and he is uncertain if he has been bit by a tick recently or not. Neuro workup so far
unrevealing, lab work pending. Per neuro, patiearnestinen has chronic R MCA/mid pontinue infarcts with moderate R ICA stenosis. +UA.
GENERAL: no acute distress
EYE: sclera anicteric
NECK: Supple, no JVD, no carotid bruit appreciated
ENT: normal nose, moist mucosal membranes
CARDIAC: Regular rate and rhythm, ectopy, +S1/S2, no murmur, rubs, or gallops
CHEST/PULMONARY: Normal effort, clear breath sounds
ABDOMEN: Soft, without focal tenderness or distention
NEUROLOGICAL: Alert and oriented x3
SKIN: Warm and dry, no rash
PSYCH: Normal and appropriate interaction.
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 No reported symptoms during hospitalization.
EKG SR 2nd degree type 1 AVB with PVCs; nonspecific STT abnormality
A/P As below
Appreciate input by neurology regarding stroke/stroke-like symptoms
Echocardiogram pending.
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 Continue to monitor on telemetry.
At this juncture, no current indication for pacemaker however, would keep NPO after midnight. Regarding pacemaker, patient and I discussed it as a possibility if the situation changes. We discussed pacemaker indications and device implant in detail.
For implant there is an approximate 1:1000 risk of ND/stroke/ and a 1% risk of pneumothorax/tamponade/infection/bleeding. We also discussed post procedure implant restrictions including positions to avoid with implant arm for first six weeks
after implant as well as driving restrictions. I took time to answer all questions. Patient verbalized understanding. He mentioned his current desire to avoid pacemaker if possible. He states that his girlfriend has a reported allergy to
electromagnetic waves/devices and is concerned a pacemaker may affect her.
d/w nursing
Original Note:
Consultation
Consultation Request
Date/Time Consultation Requested: 01/03/2025
Date/Time Consultation Performed: 01/03/2025
Requesting Provider: Dr. Lee
Performing Provider: Lucy Rubi PA-C for Dr. Walters
Reason for Consultation: Bradycardia
Medical History
-
History of Present Illness:
HPI: Hari is an 84-year-old male with past medical history of hypertension, BPH, Lyme disease, and sleep apnea. Presented to ER for evaluation of slurred speech and unsteady gait. He reports he was sitting down and his girlfriend told him it was
time to get up to go to dinner, when he stood up, he was unsteady and needed to grab onto the wall to not fall. He admits he felt dizzy/lightheaded with this, but did not lose consciousness. He also noted earlier in the day he felt cold. Given
unsteadiness and slurred speech, EMS was called. On arrival to the emergency room, blood pressure was elevated at 170/70 and heart rate was stable at 93 bpm. Given symptoms, stroke alert was called, but TNK was not indicated due to timing. Head
CT and CTA of head/neck were unremarkable. He was admitted for further workup and had brain MRI earlier today. MRI was without evidence of acute stroke. On telemetry, he was noted to have bradycardia with possible Wenckebach versus blocked PACs
resulting in cardiology consultation. He reports he has no prior cardiac history and has never been seen by division commander before. Denies any history of syncope and has not had lightheadedness/dizziness prior to episode leading to this
hospitalization.
PMH:
Hypertension
BPH
LORIE
h/o Lyme disease
Past Medical History
Past Medical History: Other (In HPI)
Past Surgical History: Orthopedic
Social History
Tobacco: Former Smoker
Alcohol: None
Drug: None
Personal: Partner
Living: With Family (With girlfriend)
Employment: Retired
Family History
Family History: Diabetes
Allergies / Home Medications
Allergy/AdvReac Type Severity Reaction Status Date / Time
No Known Allergies Allergy Verified 04/29/23 14:35
�Medication �Instructions �Recorded �Confirmed �Type
Prosvent 1 tab PO DAILY Supplement 01/02/25 01/02/25 History
amlodipine 5 mg-benazepril 10 mg 1 cap PO DAILY Blood Pressure 01/02/25 01/02/25 History
capsule
ascorbic acid (vitamin C) 1,000 mg 2 g PO DAILY Supplement 01/02/25 01/02/25 History
tablet
diphenhydramine HCl 25 mg capsule 75 mg PO DAILYPRN PRN allergy 01/02/25 01/02/25 History
(Benadryl)
multivitamin 1 tab PO DAILY Supplement 01/02/25 01/02/25 History
zinc gluconate 30 mg tablet 15 mg PO DAILY Supplement 01/02/25 01/02/25 History
Review of Systems
-
History Source: Patient
All other systems: Negative unless noted
Physical Exam
Vital Signs
Temp Pulse Resp BP Pulse Ox
99.3 F 65 18 153/59 96
01/03/25 12:39 01/03/25 12:39 01/03/25 12:39 01/03/25 12:39 01/03/25 12:39
Lab Results
01/02/25 15:46
01/02/25 15:46
Physical Exam
General: Well Developed, Well Nourished and No Apparent Distress
HEENT: Normocephalic, Anicteric and Moist Mucous Membranes
Respiratory: Clear and Non Labored Respirations
Cardiac: S1/S2 and Regular Rhythm
Musculoskeletal: No Clubbing, No Cyanosis and No Edema
Skin: Warm and Dry
Neuro: AO x 3 and Nonfocal/Grossly Intact
Psych: Calm
Impression / Plan
-
PCP: Dr. Cardoza
Cardiology: None prior to admission, initially seen by Dr. Walters
Impression:
Presented with dizziness and slurred speech
Bradycardia
1st degree AV block
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
PVCs
Hypertension
BPH
LORIE
h/o Lyme disease
Echo 01/03/2025: Study completed, report pending
Plan:
- Presented with dizziness and slurred speech. [place] off balance when standing up from couch and needs to grab onto wall. Admitted with concern for acute stroke
- MRI of brain without acute stroke. Continues on aspirin. Plavix stopped.
- EKG reviewed, sinus rhythm with 1st degree AV block and PACs.
- Reviewed tele w/ EP. Noted to have bradycardia with what appears to be higher grade 2:1 AV block this AM, not necessarily symptomatic w/ this, but still feels speech is off.
- ?symptoms could be related to bradycardia.
- Echo completed earlier today. Await results.
- TSH 0.53. K 4.2
- Does have h/o lyme disease in the past, consider rechecking lyme titers
- Given episodes of higher grade AV block, may need PPM this admission.
- Continue to follow on telemetry for now. Avoid AV nalini blockers.
HPI: Hari is an 84-year-old male with past medical history of hypertension, BPH, Lyme disease, and sleep apnea. Presented to ER for evaluation of slurred speech and unsteady gait. He reports he was sitting down and his girlfriend told him it was
time to get up to go to dinner, when he stood up, he was unsteady and needed to grab onto the wall to not fall. He admits he felt dizzy/lightheaded with this, but did not lose consciousness. He also noted earlier in the day he felt cold. Given
unsteadiness and slurred speech, EMS was called. On arrival to the emergency room, blood pressure was elevated at 170/70 and heart rate was stable at 93 bpm. Given symptoms, stroke alert was called, but TNK was not indicated due to timing. Head
CT and CTA of head/neck were unremarkable. He was admitted for further workup and had brain MRI earlier today. MRI was without evidence of acute stroke. On telemetry, he was noted to have bradycardia with possible Wenckebach versus blocked PACs
resulting in cardiology consultation. He reports he has no prior cardiac history and has never been seen by division commander before. Denies any history of syncope and has not had lightheadedness/dizziness prior to episode leading to this
hospitalization.
Data Reviewed
-
EKG: Tracing Personally Visualized and interpreted
CT Scan: Report Reviewed by me
MRI: Report Reviewed by me
Labs: Labs Reviewed by me
Old Records: Reviewed
[2025-01-03 14:23] LABS: TSH Reflex To Free T4 0.53 uIU/ml (0.47-4.68)
[2025-01-03 14:58] LABS: Folate > 20.0 ng/ml (2.76-20); Vitamin B12 577 pg/ml (239-931)
[2025-01-03] MEDS: NORVASC 2.5 MG PO (16:03)
[2025-01-03 17:00] LABS: Amphetamines Negative (Negative); Barbiturates Negative (Negative); Benzodiazepines Negative (Negative); Buprenorphine Negative (Negative); Cocaine Negative (Negative); Marijuana Negative (Negative); Methadone Negative (Negative); Methamphetamines Negative (Negative); Opiates Negative (Negative); Phencyclidine Negative (Negative); Tricyclic Antidepressants Negative (Negative)
[2025-01-03] MEDS: LIPITOR 40 MG PO (18:26)
[2025-01-03] MEDS: LOVENOX 40 MG SC (18:26)
[2025-01-04 03:57] VITALS: BP 158/84
--- NOTE | 2025-01-04 07:46 | W.PN.NEURO.1 ---
Today's Communication / Plan
-
.
Subjective/Objective
Subjective Data
Date of Service: January 04, 2025
Neurology follow-up note
Mr. Sherman reports no complaints.
The patient continues to have nonfluctuating dysarthria. No reports of diplopia, dyspnea or dysphagia.
LDL�108, normal globin A1c�5.
Brain MRI�no evidence of acute infarcts, 6.5 mm chronic ischemic infarct in the damian, small chronic transcortical ischemic infarct in the superior right frontal lobe; mild to moderate bilateral periventricular white matter leukoaraiosis and atrophy.
CTA head-moderate right ICA stenosis.
Vitamin B12�577, normal TSH
PMH: HTN, PSA elevation, seasonal allergies
PSH: Open reduction internal fixation of a left ankle trimalleolar fracture, ?Neck surgery
SH: independent in AIDLs, former smoker, no excessive alcohol use
FH:mother-depression, father- from pancreatitis, sister�cancer
All:NKDA
ROS: Positive for dysarthria, chronic hearing impairment. Negative for weight loss, headache, chest pain, dysphagia, diplopia or dyspnea.
General: Well developed. In no acute distress.
Cardio: Regular rate and rhythm without murmur. Extremities are without cyanosis or edema.
Neuro:
Mental Status: Alert, oriented to person, place, and date. Normal attention and recall. Good fund of knowledge. Follows complex requests across the midline. Comprehension, naming, and repetition intact.
Cranial Nerves: Unable to visualize optic discs due to insufficient dilatation. Pupils are equally round and reactive to light. EOMs full. Visual santos full to confrontation. No ptosis. No nystagmus. V1-V3 intact to light touch and pinprick
bilaterally, symmetric. Face symmetric. Impaired hearing AU. The palate elevated well. SCMs and traps 5/5. Tongue midline. Mild dysarthria.
Motor: Normal bulk and tone. No pronator or arm drift. Strength 5/5 throughout. No clonus.
Reflexes: 1+ throughout the upper extremities and knees. Plantar responses flexor bilaterally.
Sensory: Absent vibration at the toes and impaired at the ankles
Coordination: No dysmetria or tremor.
Gait: deferred
Assessment and Plan:
I. Nonfluctuating dysarthria. Differential diagnosis includes motor neuron disease versus neurodegenerative less likely neuromuscular junction disorder.
II. Chronic R MCA and midpontine infarcts. Moderate right ICA stenosis
III. Thrombocytopenia
IV. Distal symmetric large fiber polyneuropathy
-Continue Telemetry monitoring
-Continue aspirin 81 mg once a day
-Lipitor 20 mg nightly
-OP NCS/EMG with RNS
-Please follow-up requested serologies
-DVT prophylaxis.
-Outpatient neurology follow-up
-Please recall neurology service with any questions or concerns.
I personally reviewed all radiology and labs along with past medical records pertinent to current medical problems. Total time spent in patient care is 35 minutes.
Thank you for allowing us to participate in the care of this patient. We will continue to follow. Please do not hesitate to contact us with any questions or concerns.
Objective Data
Vital Signs
Temp Pulse Resp BP Pulse Ox
37.0 C 68 20 158/84 94
01/04/25 03:57 01/04/25 03:57 01/04/25 03:57 01/04/25 03:57 01/04/25 03:57
Lab Results
01/02/25 15:46
01/02/25 15:46
PT 14.9 Sec (11.4-14.6) H 01/02/25 15:46
INR 1.14 01/02/25 15:46
APTT 31.1 Sec (23.4-35.0) 01/02/25 15:46
Sodium 139 mmol/L (135-145) 01/02/25 15:46
Potassium 4.2 mmol/L (3.5-5.1) 01/02/25 15:46
BUN 19 mg/dl (9-20) 01/02/25 15:46
Glucose 111 mg/dl (70-99) H 01/02/25 15:46
Calcium 9.8 mg/dl (8.4-10.2) 01/02/25 15:46
LDL Cholesterol, Calc 108 mg/dl 01/03/25 06:19
Vitamin B12 577 pg/ml (911-931) 01/03/25 12:48
Ur Buprenorphine Negative (Negative) 01/03/25 16:39
Patient Allergies
No Known Allergies Allergy (Verified 04/29/23 14:35)
Vital Signs and Labs
-
Vital Signs and Labs:
Vital Signs
Temp Pulse Resp BP Pulse Ox
37.4 C 50 18 166/76 95
01/04/25 08:06 01/04/25 08:06 01/04/25 08:06 01/04/25 08:06 01/04/25 08:06
Lab Results
01/02/25 15:46
01/02/25 15:46
PT 14.9 Sec (11.4-14.6) H 01/02/25 15:46
INR 1.14 01/02/25 15:46
APTT 31.1 Sec (23.4-35.0) 01/02/25 15:46
Sodium 139 mmol/L (135-145) 01/02/25 15:46
Potassium 4.2 mmol/L (3.5-5.1) 01/02/25 15:46
BUN 19 mg/dl (9-20) 01/02/25 15:46
Glucose 111 mg/dl (70-99) H 01/02/25 15:46
Calcium 9.8 mg/dl (8.4-10.2) 01/02/25 15:46
LDL Cholesterol, Calc 108 mg/dl 01/03/25 06:19
Vitamin B12 577 pg/ml (594-931) 01/03/25 12:48
Ur Buprenorphine Negative (Negative) 01/03/25 16:39
Medications
-
Medications:
Generic Name Dose Route Start Last Admin
Trade Name Freq PRN Reason Stop Dose Admin
Acetaminophen 650 mg 01/02/25 20:02
Acetaminophen 650 Mg Rectal Suppository RECTAL 01/30/25 20:01
Q4HPRN PRN
PARKS, mild pain, or temp >100.4F
Acetaminophen 650 mg 01/02/25 20:02
Acetaminophen 325 Mg Tablet PO 01/30/25 20:01
Q4HPRN PRN
PARKS, mild pain, or temp >100.4F
Amlodipine Besylate 2.5 mg 01/03/25 14:00 01/04/25 08:20
Amlodipine 2.5 Mg Tablet PO 01/31/25 13:59 2.5 mg
DAILY SHAILESH Administration
Aspirin 81 mg 01/02/25 18:00 01/04/25 08:20
Aspirin 81 Mg (Enteric Coated) Tablet PO 01/30/25 17:59 81 mg
DAILY SHAILESH Administration
Atorvastatin Calcium 40 mg 01/03/25 18:00 01/03/25 18:26
Atorvastatin (Lipitor) 40 Mg Tablet PO 01/31/25 17:59 40 mg
QPM SHAILESH Administration
Enoxaparin Sodium 40 mg 01/03/25 18:00 01/03/25 18:26
Enoxaparin Sodium 40 Mg/0.4 Ml Syringe SC 01/31/25 17:59 40 mg
QPM SHAILESH Administration
Sodium Chloride 0 flush 01/02/25 21:00
Sodium Chloride 0.9% (Flush) Syringe IV 01/30/25 20:59
PER PROTOCOL SHAILESH
Home Medications
-
Home Medications
Prosvent 1 tab PO DAILY Supplement 01/02/25
amlodipine 5 mg-benazepril 10 mg capsule 1 cap PO DAILY Blood Pressure 01/02/25
ascorbic acid (vitamin C) 1,000 mg tablet 2 g PO DAILY Supplement 01/02/25
diphenhydramine HCl 25 mg capsule (Benadryl) 75 mg PO DAILYPRN PRN allergy 01/02/25
multivitamin 1 tab PO DAILY Supplement 01/02/25
zinc gluconate 30 mg tablet 15 mg PO DAILY Supplement 01/02/25
[2025-01-04 08:06] VITALS: BP 166/76
[2025-01-04] MEDS: ASPIR LOW (ENTERIC COATED) 81 MG PO (08:20)
[2025-01-04] MEDS: NORVASC 2.5 MG PO ×2 (08:20→13:00)
--- NOTE | 2025-01-04 09:42 | W.PN.HOSP.TC ---
Addendum entered and electronically signed by Roberta Lee MD 01/04/25 13:10:
total DC time 36 min
Original Note:
Today's Communication/Plan
-
DC home with HH
Assessment / Plan
Assessment / Plan
HPI: 84-year-old man with PMH hypertension, BPH; p/w slurred speech and unsteady gait.
On DOA, he c/o feeling cold at around 1:30 PM, which was unusual for him; at around 2:30 his girlfriend noticed slurred speech and he was also unsteady on his legs.
He denies any other symptoms.
In the ED, his neurologic deficients have much resolved.
His CT head showed No acute intracranial abnormality noted. No acute hemorrhage. No evidence to suggest acute large vascular territory transcortical infarct at this time.
A/P:
# suspect acute stroke with slurred speech and imbalance.
Pt is not a candidate for IV TNK due to low NIH stroke scale per neuro.
Continue Telemetry monitoring
CTA head and neck: RIGHT Carotid bulb/ICA Mild to moderate calcified plaque. ICA estimated luminal diameter reduction of 60-70%. No occlusion or dissection.
LEFT Carotid bulb/ICA: Moderate calcified plaque involving the carotid bulb and proximal ICA. However, no hemodynamically significant stenosis, with estimated luminal diameter reduction of less than 50%. No occlusion. No dissection.
No [place] of [place] region aneurysm or stenosis. No cerebral artery significant plaque, stenosis, thrombus, or occlusion.
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
Cont ASA without further Plavix
LDL 108, started Lipitor 40 mg
hemoglobin A1c 5.0%
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
2D echo unrevealing: EF 67%. Diastolic function indeterminate.
Check lyme titer for bradycardia work up. SO informed that pt has had Lyme disease in the past (around 2017) which was treated
Appreciate Card input
# HTN
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
Cont Norvasc alone, adjusted to 5 mg daily with holding parameter
# BPH
DVT ppx: SCD
FC
DW SO on the phone. Answered all questions.
DW RN
Anticipated Discharge: Today
Subjective/Interval History
-
Date of Service: January 04, 2025
Objective Data
-
Vital Signs:
Vital Signs
Temp Pulse Resp BP Pulse Ox
37.4 C 50 18 166/76 95
01/04/25 08:06 01/04/25 08:06 01/04/25 08:06 01/04/25 08:06 01/04/25 08:06
I&O
01/03/25 01/04/25 01/05/25
06:59 06:59 06:59
Intake Total 480 / 480 420 / 420
Output Total 1050 / 1050 1200 / 1200 300 / 300
Balance -570 / -570 -780 / -780 -300 / -300
Review of Systems
-
All other systems: Reviewed and negative
Physical Exam
-
General: Well Developed, Well Nourished, No Apparent Distress, Comfortable and Conversant; Negative Respiratory Distress
HEENT: Normocephalic, Atraumatic, Nose Appears Normal and Ears Appear Normal; Negative Oxygen
Respiratory: Clear to Auscultation and Non Labored Respirations; Negative Accessory Resp Muscle Use
Cardiac: Regular Rhythm and S1/S2
GI: Soft, Nontender, Nondistended and Normal Bowel Sounds
Skin: Warm and Dry
Neuro: Awake, Alert, Oriented and AO x 3
Psych: Calm and Intact Judgement/Insight
Data Reviewed
-
CT Scan: Report Reviewed by me
MRI: Report Reviewed by me
Labs: Labs Reviewed by me
--- NOTE | 2025-01-04 10:17 | W.PN.CARDCBS ---
Addendum entered and electronically signed by Zelalem Walters DO 01/04/25 16:06:
I saw and examined the patient.
The Time Study Engineer's note was reviewed and I agree with the note.
Comment:
Patient reporting feeling well. Patient denies any chest pain, shortness breath, lightheadedness, dizziness, near-syncope, syncope, palpitations, weakness. Review of telemetry demonstrates sinus rhythm with second-degree type I AV Wenckebach with
PVCs; occasional 2: 1 AV block while sleeping/overnight.
Examination, A/P as below
Patient with evidence of conduction system disease however no clearly defined symptoms associated with this. Patient's EKG from 2022 similarly demonstrates sinus rhythm with second-degree type I AV block is noted on admission again today. Patient
denies symptoms associated with his current rhythm and review of telemetry in timing. At this time, no clear indication for pacemaker given stable rhythm and lack of symptoms. Will have patient wear event monitor on discharge and monitor symptoms
closely. Will discuss with patient in office regarding next steps in monitoring/management. It is likely that patient's dizziness/presentation the hospital was not associated with rhythm disturbance however we will continue with monitoring going
forward.
Original Note:
Today's Communication / Plan
-
7 day CAM monitor applied
Arranging cardiology f/u
Impression / Plan
-
PCP: Dr. Cardoza
Cardiology: None prior to admission, initially seen by Dr. Walters
Impression:
Presented with dizziness and slurred speech
Bradycardia
1st degree AV block
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
PVCs
Hypertension
BPH
LORIE
h/o Lyme disease
Echo 01/03/2025: EF 67%, trace MR, moderately dilated LA, trace TR, mildly dilated aortic root 3.8 cm at sinus of Valsalva, no cardiac embolic source seen, but if clinical suspicion is high then would recommend MELE
Plan:
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
junction disorder. Neurology has recommended outpatient neurology follow-up and consideration for EMG they have also recommended atorvastatin 20 mg daily.
-From a cardiac standpoint, echo reviewed and summarized above. EF is preserved without significant valve disease
-Orthostatic vital signs include supine BP 134/54, sitting BP 126/55, standing 146/53. Patient is not orthostatic.
-Telemetry with sinus bradycardia, PVCs and Wenckebach. No higher grade heart block noted 01/04/25.
-Talked with patient's significant other, Lela, in the room with the patient using the patient's phone for 17 minutes 47 seconds on 01/04/2025. We reviewed the initial indication for cardiology consultation and findings on telemetry monitoring thus
far. We made a plan to check a 7-day outpatient monitor and I arranged for this to be placed prior to discharge on 01/04/2025. Patient's significant other was also concerned about recommendation for statin medication and was concerned that this
would lower his co-Q10 level. After some guen-[id number]-tcsuk I have recommended that the patient discuss further with his PCP and that both the patient and his partner are intelligent people and capable of taking in information and making decisions on
their own and that it was up to them if they wished for patient to start on statin medication. I was then also advised by the patient's partner that the 5G wireless tower on top of the hospital is creating an area of toxic radiation and that this
is counterintuitive to patients in the healing process. Patient's partner informed me that there are more than 10,000 studies outlining the harmful effects of 5G wireless and Wi-Fi. After some [id number]-cuw-[id number] I encouraged the patient's partner to
feel empowered to write a letter to the hospital outlining her concerns regarding her use of Wi-Fi and a 5G wireless tower. Patient's partner is also concerned about following up with neurologist as an outpatient and performing an EMG, patient's
partner tells me that she is intelligent with a higher than average IQ and again I encouraged the patient and his partner to review with PCP and make a decision that they felt comfortable making.
-Stable for d/c from cardiac standpoint. gold nib grinder applied. Arranging for cardiology follow up.
-52 min face to face and non face to face time
HPI: Hari is an 84-year-old male with past medical history of hypertension, BPH, Lyme disease, and sleep apnea. Presented to ER for evaluation of slurred speech and unsteady gait. He reports he was sitting down and his girlfriend told him it was
time to get up to go to dinner, when he stood up, he was unsteady and needed to grab onto the wall to not fall. He admits he felt dizzy/lightheaded with this, but did not lose consciousness. He also noted earlier in the day he felt cold. Given
unsteadiness and slurred speech, EMS was called. On arrival to the emergency room, blood pressure was elevated at 170/70 and heart rate was stable at 93 bpm. Given symptoms, stroke alert was called, but TNK was not indicated due to timing. Head
CT and CTA of head/neck were unremarkable. He was admitted for further workup and had brain MRI earlier today. MRI was without evidence of acute stroke. On telemetry, he was noted to have bradycardia with possible Wenckebach versus blocked PACs
resulting in cardiology consultation. 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 Denies any history of syncope and has not had lightheadedness/dizziness prior to episode leading to this
hospitalization.
Progress Note - Immigration Associate
Subjective
Date of Service: January 04, 2025
He says he feels better
Objective
Labs:
01/02/25 15:46
01/02/25 15:46
Labs
Hgb 13.6 g/dL (13.0-18.0) 01/02/25 15:46
Hct 38.6 % (39.0-52.0) L 01/02/25 15:46
Plt Count 128 10^3/uL (130-400) L 01/02/25 15:46
PT 14.9 Sec (11.4-14.6) H 01/02/25 15:46
INR 1.14 01/02/25 15:46
APTT 31.1 Sec (23.4-35.0) 01/02/25 15:46
Sodium 139 mmol/L (135-145) 01/02/25 15:46
Potassium 4.2 mmol/L (3.5-5.1) 01/02/25 15:46
BUN 19 mg/dl (9-20) 01/02/25 15:46
Creatinine 1.3 mg/dL (0.7-1.3) 01/02/25 15:46
Glucose 111 mg/dl (70-99) H 01/02/25 15:46
Vital Signs and I&O:
Vital Signs
Temp Pulse Resp BP Pulse Ox
99.4 F 50 18 166/76 95
01/04/25 08:06 01/04/25 08:06 01/04/25 08:06 01/04/25 08:06 01/04/25 08:06
Vital Signs
Temp Pulse Resp BP Pulse Ox
99.4 F 50 18 166/76 95
01/04/25 08:06 01/04/25 08:06 01/04/25 08:06 01/04/25 08:06 01/04/25 08:06
Intake & Output
01/02/25 01/03/25 01/04/25 01/05/25
06:59 06:59 06:59 06:59
Intake Total 480 / 480 420 / 420
Output Total 1050 / 1050 1200 / 1200 300 / 300
Balance -570 / -570 -780 / -780 -300 / -300
Physical Exam
Physical Exam
GEN: AAOx3
HEENT: mmm
LUNGS: RA. No audible wheeze
CV: SR.
ABD: ND
EXT: No edema B/L
NEURO: Gross non-focal
SKIN: No rash
[2025-01-04 11:37] VITALS: BP 168/75
--- NOTE | 2025-01-04 12:15 | CM ---
Received consult for VN/Homecare. Met with patient who denied the need for VN care. He stated that he is not home bound and does not plan to be as he still drives. He stated that he will stay home for the next few days but is hoping to be able to
get back to his regular everyday activities quickly. Patient stated that his significant other will be transporting him home. He expressed no further needs.
Plan: Case management will continue to follow and assist with discharge planning. Patient would like to return home.
[2025-01-04 12:30] VITALS: BP 126/87; BP 168/78; PULSE 44; O2SAT 97
--- NOTE | 2025-01-04 12:59 | W.DCSUMMARY ---
Discharge Summary
Discharge Data
Date of Admission: 01/02/25
Date of Discharge: 01/04/25
-
Pending Results: No
Hospital Course
Principal Diagnosis:
Resolved slurred speech and imbalance
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
Chronic Diagnoses:�
Essential hypertension
BPH
Consultations:�
Neurology
Cardiology
Procedures:�
None
Clinical course:�
This is a 84-year-old man with past medical history as stated above, who presented with slurred speech and unsteady gait.
These neurologic symptoms have mostly resolved by the time he was in the emergency room.
Problem 1:
Resolved slurred speech and imbalance.
He was initially admitted for stroke alert, but his MRI brain did not show any acute intracranial infarction (noted 6.5 mm chronic ischemic infarct in the damian. Small chronic transcortical ischemic infarct in the superior right frontal lobe).
As part of the stroke work up, he also had CTA head and neck: noted RIGHT Carotid bulb/ICA Mild to moderate calcified plaque. ICA estimated luminal diameter reduction of 60-70%. No occlusion or dissection.
LEFT Carotid bulb/ICA: Moderate calcified plaque involving the carotid bulb and proximal ICA. However, no hemodynamically significant stenosis, with estimated luminal diameter reduction of less than 50%. No occlusion. No dissection.
No [place] of [place] region aneurysm or stenosis. No cerebral artery significant plaque, stenosis, thrombus, or occlusion.
Her can follow up with neurology outpatient for other differential work up including motor neuron disease versus neurodegenerative etc.
He can continue baby aspirin going forward per neurology.
Of note, his LDL was elevated at 108, and he was started with Lipitor 40 mg this admission, which he can continue going forward.
His hemoglobin A1c was checked as part of the stroke work up, and it was WNL at 5.0%.
Problem 2:
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
His 2D echo was unrevealing: EF 67%. Diastolic function indeterminate.
Lyme titer was ordered by cardiology for his bradycardia/heart block work up. He can follow up the result with his PCP/cardiology outpatient.
His significant other did inform us that the patient has had Lyme disease back in around 2018, and he did receive treatment for it.
As for the rest of his medical problems, they were stable during his hospital stay.
Discharge Plan
-
Patient Disposition: Home with Home Care
Discharge Diagnosis/Procedures: Resolved slurred speech and imbalance;
bradycardia (1st degree AVB with possible 2nd degree type 1 AVB)
Condition: Fair
Diet: As tolerated, Low Fat, Low Cholesterol and Low Sodium
Activity: As tolerated
Driving Restrictions: As prior to admission
Blood Work: LDL in 3 months with PCP
Activity Restrictions/Additional Instructions:
You can follow up Lyme serology with your PCP outpatient
Follow up with Neurology outpatient
Referrals:
Ravi Cardoza, DO [Family Provider] - in less than 1 week
Additional Discharge Medication Instructions: Take Norvasc 5 mg
Continue to take Lipitor 40 mg for high cholesterol
You were started with baby aspirin, continue to take
Prescriptions:
New
aspirin 81 mg Tablet,Delayed Release (Dr/Ec)
81 mg PO DAILY Qty: 30 0RF
atorvastatin 40 mg Tablet
40 mg PO QPM Qty: 30 0RF
amlodipine 5 mg Tablet
5 mg PO DAILY Qty: 30 0RF
Continued
multivitamin Tablet
1 tab PO DAILY
ascorbic acid (vitamin C) 1,000 mg Tablet
2 g PO DAILY
zinc gluconate 30 mg Tablet
15 mg PO DAILY
diphenhydramine HCl [Benadryl] 25 mg Capsule
75 mg PO DAILYPRN PRN (Reason: allergy)
Prosvent
1 tab PO DAILY
Patient Comments:
prostate support w/ saw ginger, vitamin d and zinc
Discontinued
amlodipine-benazepril 5-10 mg Capsule
1 cap PO DAILY
Discharge Orders:
Discharge Patient (As Directed); Ordered 01/04/25
Ordered By: Roberta Lee
Discharge Date and Time
Print Language: SLOVAK
== END 2025-01-04 14:49 | disposition home or self-care (01) ==
LOC: 4 EAST ACU 17:56
PROVIDERS: Physician Assistant; ADMITTING PHYSICIAN Internal Medicine; CONSULT PHYSICIAN Psychiatry & Neurology Neurology; EMERGENCY PHYSICIAN Emergency Medicine; FAMILY PHYSICIAN Internal Medicine; OTHER PHYSICIAN Internal Medicine Cardiovascular Disease
DX: R47.1 Dysarthria and anarthria (principal); R29.810 Facial weakness; R26.81 Unsteadiness on feet; R53.1 Weakness; R26.89 Other abnormalities of gait and mobility; I44.1 Atrioventricular block, second degree; I10 Essential (primary) hypertension; G93.40 Encephalopathy, unspecified; D69.6 Thrombocytopenia, unspecified; N40.0 Benign prostatic hyperplasia without lower urinary tract symptoms; R00.1 Bradycardia, unspecified; I49.3 Ventricular premature depolarization; H91.90 Unspecified hearing loss, unspecified ear; I65.23 Occlusion and stenosis of bilateral carotid arteries; I45.10 Unspecified right bundle-branch block; I34.81 Nonrheumatic mitral (valve) annulus calcification; R53.81 Other malaise; R68.83 Chills (without fever); G62.9 Polyneuropathy, unspecified; G47.33 Obstructive sleep apnea (adult) (pediatric); Z87.891 Personal history of nicotine dependence; Z83.79 Family history of other diseases of the digestive system; Z79.82 Long term (current) use of aspirin; Z79.899 Other long term (current) drug therapy; Z86.73 Personal history of transient ischemic attack (TIA), and cerebral infarction without residual deficits
CPT/HCPCS: 70450; 70496; 70498; 70551; 80053; 80061; 80306; 81003; 81015; 82607; 82746; 82962; 83036; 84155; 84165; 84425; 84443; 85025; 85610; 85730; 86618; 92610; 93005; 93306; 97162; 97166; 99285; G0378; Q9967